=== PATIENT | male | born 1995 | race Caucasian/White ===

== ENCOUNTER 2018-11-07 23:42 | Emergency (ER) | payer SELFPAY ==
[~2018-11-07] VITALS: Ht 172.7 cm; Wt 106.1 kg
[2018-11-07 23:49] VITALS: BP 149/72
--- NOTE | 2018-11-08 | NUR ---
PT TO ED C/O L LEG PAIN S/P POLE LANDING ON LEG. PT HAS +ROM. +CMS. MILD SWELLING NOTED TO L LEG. NO OBVIOUS DEFORMITY NOTED. PT PLACED INTO BED, PENDING MD ROSADO. PMH--DENIES RX--DENIES
--- NOTE | 2018-11-08 | NUR ---
PT AMBULATED TO BED 3
--- NOTE | 2018-11-08 00:36 | NUR ---
PT WOUND ON L LEG CLEANED WITH NORMAL SALINE
[2018-11-08 00:52] VITALS: BP 149/72
== END 2018-11-08 00:52 | disposition home or self-care (01) ==
LOC: MED 23:42
DX: S80.812A Abrasion, left lower leg, initial encounter (principal); W20.8XXA Other cause of strike by thrown, projected or falling object, initial encounter; Y93.89 Activity, other specified; Y92.89 Other specified places as the place of occurrence of the external cause; Y99.8 Other external cause status
CPT/HCPCS: 73590; 90471; 90715; 99283; Q0092